=== PATIENT | female | born 1940 | race Caucasian/White ===

== ENCOUNTER 2020-11-23 19:52 | Outpatient (REF) | payer SELFPAY ==
[2020-11-23 21:12] LABS: Abs Immature Grans 0.08 10^3/uL (0.0-0.06); Absolute Basophil Count 0.02 10^3/uL (0.0-0.2); Absolute Eosinophil Count 0.26 10^3/uL (0.0-0.7); Absolute Lymphocyte Count 0.85 10^3/uL (1.2-3.4); Basophils % 0.2; Eosinophils % 2.3; HCT 31.4 % (36.0-46.0); HGB 10.1 g/dL (11.2-15.7); Immature Grans % 0.7; Lymphocytes % 7.5; MCH 30.9 pg (27.0-33.0); MCHC 32.2 % (32.0-36.0); MPV 8.7 fL (8.0-11.0); Monocytes % 7.8; Neutrophils % 81.5; Nucleated RBC 0 %; Platelet Count 453 10^3/uL (130-400); RBC 3.27 10^6/uL (3.93-5.22); RDW 13.7 % (11.7-14.6); RDW-SD 47.5 fL; WBC 11.35 10^3/uL (4.4-10.8)
[2020-11-23 21:15] LABS: Absolute Monocyte Count 0.89 10^3/uL (0.1-0.8); Absolute Neutrophil Count 9.25 10^3/uL (1.2-6.7)
[2020-11-24 06:38] LABS: ALT 33 U/L (14-59); AST 49 U/L (15-37); Albumin 2.7 g/dL (3.4-5.0); Alkaline Phosphatase 74 U/L (46-116); Anion Gap 7.1 mmol/L (3-11); BUN 12 mg/dL (7-18); Bilirubin, Total 1.3 mg/dL (0.2-1.0); CO2 30.9 mmol/L (21.0-32.0); CREATININE 0.8 mg/dL (0.55-1.02); Calcium 8.3 mg/dL (8.5-10.1); Chloride 99 mmol/L (98-107); Glucose 104 mg/dL (74-106); Sodium 137 mmol/L (136-145); Total Protein 5.7 g/dL (6.4-8.2)
[2020-11-24 07:13] LABS: Potassium 2.9 mmol/L (3.5-5.1)
== END 2020-11-23 19:53 | disposition home or self-care (01) ==
LOC: LBN 19:52
PROVIDERS: PCP Neuromusculoskeletal Medicine & OMM; Visit Provider Family Medicine
DX: J18.9 Pneumonia, unspecified organism (principal); I10 Essential (primary) hypertension
CPT/HCPCS: 80053; 85025

== ENCOUNTER 2020-11-28 13:52 | Outpatient (REF) | payer SELFPAY ==
[2020-11-28 16:50] LABS: Anion Gap 7.2 mmol/L (3-11); BUN 8 mg/dL (7-18); CO2 27.8 mmol/L (21.0-32.0); CREATININE 0.9 mg/dL (0.55-1.02); Calcium 8.5 mg/dL (8.5-10.1); Chloride 104 mmol/L (98-107); Glucose 94 mg/dL (74-106); Potassium 4.8 mmol/L (3.5-5.1); Sodium 139 mmol/L (136-145)
== END 2020-11-28 13:53 | disposition home or self-care (01) ==
LOC: LBN 13:52
PROVIDERS: PCP Neuromusculoskeletal Medicine & OMM; Visit Provider Nurse Practitioner Family
DX: E87.6 Hypokalemia (principal)
CPT/HCPCS: 80048

== ENCOUNTER 2020-12-30 10:57 | Emergency (ER) | payer MEDICARE, SELFPAY ==
[2020-12-30] VITALS (56 sets, daily range): BP systolic 83–155; BP diastolic 53–83; PULSE 89–139; RESP 0–45; TEMP 36.8–39.2; O2SAT 90–97
--- NOTE | 2020-12-30 11:00 | RT.EKG_ITS ---
APPROVED REPORT Exam: Resting ECG Reason for Exam: sob Patient Location: E HR:126 bpm ECG Measurements Heart Rate 126 AXIS AR 129 P 192 QRSd 147 QRS 141 QT 387 T -14 QTc 561 Conclusion Ectopic atrial tachycardia, unifocal...abnormal P axis, V-rate> 99 Consider dextrocardia...P, QRS axis rightward likely atrial flutter at rate 126, normal axis, no STEMI
[2020-12-30] MEDS: Normal Saline 1,000 ML 1000 ML IV (11:05)
[2020-12-30] MEDS: cefTRIAXone 2 GM/50 ML BAG 100 GM (11:30)
--- NOTE | 2020-12-30 11:30 | DI.RAD_ITS ---
Exam(s) XR PORTABLE CHEST AP EXAM: XR PORTABLE CHEST AP CLINICAL HISTORY: sob, hypoxia, hx of pneumonia TECHNIQUE: COMPARISON: No exams were available for comparison FINDINGS: The heart is at the upper limits of normal in size. Lungs are grossly clear with couple of small geoff ear areas of increased radiodensity in the lung bases which may represent small areas of scarring or atelectasis. IMPRESSION: No evidence of acute intrapulmonary process on this portable AP film.. Please note that, on today's CT examination, ground-glass and consolidative opacities were noted in t he lung bases. Acute pneumonitis should be considered. RADIATION DOSE DELIVERED: Total DLP
--- NOTE | 2020-12-30 11:30 | DI.CT_ITS ---
Exam(s) CT ABDOMEN PELVIS WO EXAM: CT ABDOMEN PELVIS WO INDICATION: gross hematuria. COMPARISON: CR XR PORTABLE CHEST AP from 12/30/2020 CR XR PORTABLE CHEST AP from 12/30/2020 TECHNIQUE: CT examination was performed without contrast administration. FINDINGS: The examination was significantly limited by motion artifact. Images obtained through the lung bases show some ground-glass and consolidative opacities, most marke d in the left lobe posteriorly. Please correlate regarding possibility of pneumonitis. Note is made of coronary artery calcification. Heart may be mildly enlarged. Visualized portions of the liver and spleen appear intact. Visualized portions of the pancreas are unremarkable. Note is made of cholelithiasis. No pericholecystic fluid collection. The bile ducts are CT normal. Abdominal aorta is of normal diameter. No significant abdominal wall hernia. No significant abdominal or pelvic adenopathy. Adrenals appear normal bilaterally. The kidneys are normal in size and shape. There is no evidence of a solid renal mass, hydronephrosis , or nephrolithiasis. There are couple of left renal cortical cysts, measuring 1-2 cm in diameter. No ureteral dilatation or calcification identified. The urinary bladder appears to be thick-walled s ome asymmetry of the appearance of the wall which is most thick anteriorly. Considering the history of hematuria, the findings could represent cystitis or bladder wall neoplasm. Additional evaluation with cystoscopy may be considered if clinically appropriate. The appendix is not specifically visualized but there is no evidence of appendicitis or diverticuliti s. IMPRESSION: No evidence of urinary tract calcification or obstruction. There is urinary bladder wall thickening, possibility of cystitis or neoplastic disease should be considered and correlation with cystoscopy i s suggested in light of the clinical history of gross hematuria. RADIATION DOSE DELIVERED: 1,368.41mGy.cm DLP 1,368.41mGy.cm Total DLP CTDIvol RADIATION OPTIMIZATION: All CT scans at this facility use at least one of these dose optimization te chniques: automated exposure control; mA and/or kV adjustment per patient size (includes targeted exa ms where dose is matched to clinical indication); or iterative reconstruction.
[2020-12-30] MEDS: Lidocaine 2% Jelly 6 ML SYR (11:40)
[2020-12-30 11:50] LABS: Source Nasal/Nares
[2020-12-30] MEDS: ACETAMINOPHEN 1,000 MG/100 ML BTL 200 MG (12:00)
[2020-12-30 12:10] LABS: Abs Immature Grans 0.08 10^3/uL (0.0-0.06); Absolute Basophil Count 0.02 10^3/uL (0.0-0.2); Absolute Eosinophil Count 0.07 10^3/uL (0.0-0.7); Absolute Lymphocyte Count 0.92 10^3/uL (1.2-3.4); Absolute Monocyte Count 0.04 10^3/uL (0.1-0.8); Absolute Neutrophil Count 6.55 10^3/uL (1.2-6.7); Basophils % 0.3; Eosinophils % 0.9; HCT 42.6 % (36.0-46.0); HGB 13.4 g/dL (11.2-15.7); MCH 29.4 pg (27.0-33.0); MCHC 31.5 % (32.0-36.0); MCV 93.4 fL (80-95); MPV 9.4 fL (8.0-11.0); Monocytes % 0.5; Neutrophils % 85.3; Nucleated RBC 0 %; Platelet Count 215 10^3/uL (130-400); RBC 4.56 10^6/uL (3.93-5.22); RDW 13.4 % (11.7-14.6); RDW-SD 46.2 fL; WBC 7.68 10^3/uL (4.4-10.8)
[2020-12-30 12:15] LABS: Lactate 2.7 mmol/L (0.6-1.4)
[2020-12-30] MEDS: Ondansetron 4 MG/2 ML VIAL (12:20)
[2020-12-30 12:32] LABS: Albumin 2.6 g/dL (3.4-5.0); BUN 7 mg/dL (7-18); Bilirubin, Total 0.5 mg/dL (0.2-1.0); CREATININE 1.1 mg/dL (0.55-1.02); Calcium 8.1 mg/dL (8.5-10.1); Estimated GFR 48.04 (mL/min/1.73m2); Glucose 129 mg/dL (74-106)
[2020-12-30 12:33] LABS: ALT 14 U/L (14-59); AST 21 U/L (15-37); Alkaline Phosphatase 94 U/L (46-116); Anion Gap 7.5 mmol/L (3-11); CO2 24.5 mmol/L (21.0-32.0); Chloride 106 mmol/L (98-107); Lipase 52 U/L (73-393); Potassium 3.5 mmol/L (3.5-5.1); Sodium 138 mmol/L (136-145)
[2020-12-30 12:34] LABS: Troponin I 2.91 ng/mL (<0.06)
[2020-12-30 12:50] LABS: COVID-19 PCR Negative (Negative)
[2020-12-30] MEDS: Lactated Ringers 1,000 ML 1000 ML IV (14:40)
--- NOTE | 2020-12-30 14:45 | RT.EKG_ITS ---
APPROVED REPORT Exam: Resting ECG Reason for Exam: elevated trop Patient Location: E HR:94 bpm ECG Measurements Heart Rate 94 AXIS AK 237 P 4 QRSd 99 QRS 27 QT 369 T 21 QTc 461 Conclusion Sinus rhythm...normal P axis, V-rate 60- 99 Prolonged AK interval...AK >215, V-rate 91-120
[2020-12-30 15:50] LABS: Bilirubin Negative (Negative); Blood Moderate (Negative); Clarity Cloudy (Clear); Glucose Negative (Negative); Ketones Negative (Negative); Leukocyte Esterase Trace (Negative); Nitrite Positive (Negative)
[2020-12-30 15:54] LABS: Troponin I 5.83 ng/mL (<0.06)
[2020-12-30 16:01] LABS: Epithelial Cells Rare HPF (Negative); RBC >50 HPF (0-2); WBC >50 HPF (0-5)
[2020-12-30 16:02] LABS: Bacteria Few HPF (Negative); C & S Indicated? Yes; Casts Negative LPF (Negative); Crystals Negative HPF (Negative); Mucus Negative (Negative)
[2020-12-30] MEDS: DOXYCYCLINE 100 MG in Normal Saline 100 ML IVPB (16:02)
--- NOTE | 2020-12-30 16:19 | ED.GENADUL_ITS ---
Discharge Plan Disposition Patient Disposition: OTHER Condition: Critical Discharge Details Clinical Impression: Acute UTI, Pneumonia, Sepsis Primary Care Provider: Krzysztof Saldivar ED Provider: Sofya Arroyo Home Meds and New Rx's Prescriptions: Continued acetaminophen 500 mg capsule 500 mg PO DIRECTED RF: 0 alum-mag hydroxide-simeth [Almacone-2] 400-400-40 mg/5 mL suspension 5 ml PO BID PRNRF: 0 amitriptyline 100 mg tablet 100 mg PO DAILY RF: 0 aspirin 81 mg tablet 81 mg PO DAILY RF: 0 diphenhydramine HCl [Banophen] 50 mg capsule 50 mg PO QHS RF: 0 buspirone 30 mg tablet 30 mg PO BID RF: 0 cetirizine 10 mg tablet 5 mg PO DAILY PRNRF: 0 mecobalamin (vitamin B12) 1,000 mcg tablet,chewable 1,000 mcg PO DAILY RF: 0 diltiazem HCl 120 mg capsule,extended release 24hr 120 mg PO DAILY RF: 0 fluoxetine 20 mg tablet 20 mg PO DAILY RF: 0 fluticasone propionate [Allergy Relief (fluticasone)] 50 mcg/actuation spray,suspension 2 spray intranasal DAILY RF: 0 glucosamine-chondroitin 500-400 mg capsule 1 cap PO TID RF: 0 isosorbide mononitrate 120 mg tablet extended release 24 hr 120 mg PO BID RF: 0 loratadine 10 mg tablet 10 mg PO DAILY RF: 0 meloxicam 15 mg tablet 15 mg PO DAILY RF: 0 triamcinolone acetonide [Children's Nasacort] 55 mcg aerosol,spray 2 spray intranasal DAILY RF: 0 nitroglycerin 0.4 mg tablet, sublingual 0.4 mg sublingual Q5M PRNRF: 0 omeprazole 20 mg capsule,delayed release(DR/EC) 20 mg PO BID RF: 0 simvastatin 40 mg tablet 40 mg PO DAILY RF: 0 trazodone 100 mg tablet 300 mg PO QHS RF: 0 hydroxyzine HCl 25 mg Tablet 5 mg PO PRNRF: 0 potassium chloride 20 mEq Tablet Extended Release 20 meq PO QID RF: 0 hydromorphone [Dilaudid] 2 mg Tablet 2 mg PO .6HOURS PRNRF: 0 Discharge Data Discharge Date/Time-TO BE ENTERED AT DEPARTURE: 12/30/20 17:00 Medical Decision Making Unfortunately patient is at risk for deterioration and will likely need intensive care bed, we do not currently have this available therefore daughter made aware regarding need for transport Case discussed with Dr. Fabian, accepting hospitalist at [facility] Patient is symptomatically improved hypotensive, will complete full sepsis bolus and reassess Troponin unfortunately has increased from 2-5, EKG shows normal sinus rhythm CT abdomen and pelvis did not show significant acute abnormality Chest x-ray with pneumonitis Patient was administered 2 g of ceftriaxone and 100 mg of doxycycline He received Tylenol 1 g His urine is concerning for infection H is reportedly on baseline oxygen, 1 to 2 L and tolerating this well His Lab is negative His lactate is elevated at 2.7 CRP of 1.7 Patient is not anticoagulated and does have a history of atrial fibrillation, however his repeat EKG shows normal sinus rhythm 80 the risk of anticoagulating this patient with his gross hematuria outweighs the benefit at this time I will leave further intervention to the discretion of the admitting provider At this time, EMS presents for transfer the patient, patient is symptomatically feeling improved, he is alert and at his cognitive baseline per his daughter who is in the room, daughter is Lucie and she prefers no invasive measures to be performed including cardiac catheterization, patient is to be DNR DNI status, this will be a change from his full CODE STATUS listed, we had a long discussion regarding this decision and patient's daughter Marta is competent to make decision and have DURABLE POWER OF SCISSORS GRINDER Patient is Covid negative At this time, patient's blood pressure maintained with a MAP of 67, he received a full sepsis bolus of 2800 cc of saline HPI General Mode of arrival: ambulatory . Date/Time Provider Initiated Documentation: 12/30/20 11:03 . Limitations to Documentation: altered mental status . Information obtained by: patient and EMS . HPI Narrative: This 80-year-old gentleman with history of hypertension, hyperlipidemia, dementia presents with report of rigors, fever, and gross hematuria. Patient was reported to start with the symptoms this morning. He has not been on antibiotics. Patient cannot tell me any complaints. I am told he is at his baseline patient. There have been no reported falls or injuries. Patient has not reportedly anticoagulated. Secondary to dementia unable to obtain additional history. Related Data Home Medications Medication Instructions Recorded Confirmed acetaminophen 500 mg capsule 500 mg PO DIRECTED cap 03/03/20 12/30/20 aluminum-mag hydroxide-simethicone 5 ml PO BID PRN ml 03/03/20 12/30/20 400 mg-400 mg-40 mg/5 mL oral susp amitriptyline 100 mg tablet 100 mg PO DAILY 03/03/20 12/30/20 aspirin 81 mg tablet 81 mg PO DAILY 03/03/20 12/30/20 buspirone 30 mg tablet 30 mg PO BID 03/03/20 cetirizine 10 mg tablet 5 mg PO DAILY PRN 03/03/20 12/30/20 diltiazem HCl 120 mg 120 mg PO DAILY 03/03/20 12/30/20 capsule,extended release 24 hr diphenhydramine HCl 50 mg capsule 50 mg PO QHS 03/03/20 12/30/20 fluoxetine 20 mg tablet 20 mg PO DAILY 03/03/20 12/30/20 fluticasone propionate 50 2 spray INTRANASAL DAILY 03/03/20 12/30/20 mcg/actuation nasal spray,suspension glucosamine-chondroitin 500 mg-400 1 cap PO TID 03/03/20 12/30/20 mg capsule isosorbide mononitrate 120 mg 120 mg PO BID tab 03/03/20 12/30/20 tablet,extended release 24 hr loratadine 10 mg tablet 10 mg PO DAILY 03/03/20 12/30/20 mecobalamin (vitamin B12) 1,000 1,000 mcg PO DAILY 03/03/20 12/30/20 mcg chewable tablet meloxicam 15 mg tablet 15 mg PO DAILY 03/03/20 12/30/20 nitroglycerin 0.4 mg sublingual 0.4 mg SUBLINGUAL Q5M PRN 03/03/20 12/30/20 tablet omeprazole 20 mg capsule,delayed 20 mg PO BID 03/03/20 12/30/20 release simvastatin 40 mg tablet 40 mg PO DAILY 03/03/20 12/30/20 trazodone 100 mg tablet 300 mg PO QHS tab 03/03/20 12/30/20 triamcinolone acetonide 55 mcg 2 spray INTRANASAL DAILY 03/03/20 12/30/20 nasal spray aerosol hydromorphone [Dilaudid] 2 mg PO .6HOURS PRN 12/30/20 12/30/20 hydroxyzine HCl 5 mg PO PRN 12/30/20 potassium chloride 20 meq PO QID 12/30/20 12/30/20 Allergies Allergy/AdvReac Type Severity Reaction Status Date / Time Iodinated Contrast Media Allergy Verified 12/30/20 12:03 General Stated Complaint: GenMedical MANE: 2 Review of Systems All systems reviewed & are unremarkable except as noted in HPI and below PFSH Medical History (Updated 12/30/20 @ 20:09 by DAO Granger) Anemia cobalamin deficiency Arthropathy Constipation Depressive disorder Hx of herpes zoster Hyperlipidemia Hypertension Insomnia Knee pain, right Macular degeneration Pain in left shoulder Senility Surgical History (Updated 03/02/20 @ 10:26 by Di Norris) H/O hernia repair Social History (Updated 03/02/20 @ 10:26 by Di Norris) Smoking/Tobacco Use Status: Never Smoking risk assessment performed?: Yes Exam Const General: cooperative and ill appearing HENMT Mouth: abnormal oral mucosae Eyes Pupils: PERRL Neck Other: no meningismus Resp Effort & Inspection: normal respiratory effort Cardio Rate: tachycardic Heart Sounds: murmur GI Inspection: normal to inspection Auscultation: normal bowel sounds Other: No abdominal tenderness Skin General skin exam: no rashes or lesions noted Other: pallor Neuro General: patient alert Cranial Nerves: CN's II-XI intact bilaterally Speech: speech normal Extrem Other: Distal pulses intact 1+ edema bilateral lower extremities, no petechiae or purpura Course Vital Signs Vital signs: Vital Signs Respiratory Rate 29 H 12/30/20 11:03 Temperature 39.2 C H 12/30/20 11:56 Temperature Source Skin 12/30/20 11:56 Pulse 117 H 12/30/20 12:30 Pulse 105 H 12/30/20 14:11 Respiratory Rate 24 12/30/20 14:11 Respiratory Effort 12/30/20 13:29 Respiratory Depth Normal 12/30/20 13:29 Respiratory Pattern Normal 12/30/20 13:29 Blood Pressure 103/67 12/30/20 12:30 Blood Pressure Mean 75 12/30/20 12:30 Blood Pressure Position Supine 12/30/20 11:56 Pulse Oximetry 94 12/30/20 14:11 Oxygen Delivery Method OxyMask 12/30/20 12:26 Oxygen Flow Rate 3.5 12/30/20 12:26 Pain Level 0 12/30/20 11:56 Lab/Test Results Lab/Test Results: 12/30/20 15:30 Urine - Clean Catch Urine Culture - Pending 12/30/20 12:15 Urine - Cath Straight Urine Culture - Pending 12/30/20 11:55 Blood Blood Culture - Pending 12/30/20 11:15 Blood Blood Culture - Pending Laboratory Tests Range/Units 12/30/20 12/30/20 12/30/20 11:15 11:15 11:15 WBC (4.4-10.8) 10^3/uL 7.68 RBC (3.93-5.22) 10^6/uL 4.56 Hgb (11.2-15.7) g/dL 13.4 Hct (36.0-46.0) % 42.6 MCV (80-95) fL 93.4 MCH (27.0-33.0) pg 29.4 MCHC (32.0-36.0) % 31.5 L RDW (11.7-14.6) % 13.4 Plt Count (130-400) 10^3/uL 215 MPV (8.0-11.0) fL 9.4 Immature Gran % 1.0 Neutrophils % 85.3 Lymphocytes % 12.0 Monocytes % 0.5 Eosinophils % 0.9 Basophils % 0.3 Nucleated RBC % % 0 Absolute Neutrophils (1.2-6.7) 10^3/uL 6.55 Absolute Lymphocytes (1.2-3.4) 10^3/uL 0.92 L Absolute Monocytes (0.1-0.8) 10^3/uL 0.04 L Absolute Eosinophils (0.0-0.7) 10^3/uL 0.07 Absolute Basophils (0.0-0.2) 10^3/uL 0.02 VBG Lactate (0.6-1.4) mmol/L Sodium (136-145) mmol/L 138 Potassium (3.5-5.1) mmol/L 3.5 Chloride (98-107) mmol/L 106 Carbon Dioxide (21.0-32.0) mmol/L 24.5 Anion Gap (3-11) mmol/L 7.5 BUN (7-18) mg/dL 7 Creatinine (0.55-1.02) mg/dL 1.1 H Estimated GFR/1.73 m2 (mL/min/1.73m2) 48.04 Glucose (74-106) mg/dL 129 H Calcium (8.5-10.1) mg/dL 8.1 L Total Bilirubin (0.2-1.0) mg/dL 0.5 AST (15-37) U/L 21 ALT (14-59) U/L 14 Alkaline Phosphatase (46-116) U/L 94 Troponin I (<0.06) ng/mL 2.91 H* C-Reactive Protein (0.0-0.3) mg/dL 1.70 H Cancelled Total Protein (6.4-8.2) g/dL 6.0 L Albumin (3.4-5.0) g/dL 2.6 L Lipase (73-393) U/L 52 Urine Color Urine Clarity Urine pH Ur Specific [place] Urine Protein Urine Ketones Urine Blood Urine Nitrite Urine Bilirubin Urine Urobilinogen Ur Leukocyte Esterase Urine RBC (0-2) HPF Urine WBC (0-5) HPF Ur Epithelial Cells (Negative) HPF Urine Crystals (Negative) HPF Urine Bacteria (Negative) HPF Urine Casts (Negative) LPF Urine Mucus (Negative) Urine Other (Negative) Ur Culture Indicated? Urine Glucose COVID-19 Source SARS-CoV-2 (PCR) (Negative) Range/Units 12/30/20 12/30/20 12/30/20 11:15 11:45 11:50 WBC (4.4-10.8) 10^3/uL RBC (3.93-5.22) 10^6/uL Hgb (11.2-15.7) g/dL Hct (36.0-46.0) % MCV (80-95) fL MCH (27.0-33.0) pg MCHC (32.0-36.0) % RDW (11.7-14.6) % Plt Count (130-400) 10^3/uL MPV (8.0-11.0) fL Immature Gran % Neutrophils % Lymphocytes % Monocytes % Eosinophils % Basophils % Nucleated RBC % % Absolute Neutrophils (1.2-6.7) 10^3/uL Absolute Lymphocytes (1.2-3.4) 10^3/uL Absolute Monocytes (0.1-0.8) 10^3/uL Absolute Eosinophils (0.0-0.7) 10^3/uL Absolute Basophils (0.0-0.2) 10^3/uL VBG Lactate (0.6-1.4) mmol/L Sodium (136-145) mmol/L Potassium (3.5-5.1) mmol/L Chloride (98-107) mmol/L Carbon Dioxide (21.0-32.0) mmol/L Anion Gap (3-11) mmol/L BUN (7-18) mg/dL Creatinine (0.55-1.02) mg/dL Estimated GFR/1.73 m2 (mL/min/1.73m2) Glucose (74-106) mg/dL Calcium (8.5-10.1) mg/dL Total Bilirubin (0.2-1.0) mg/dL AST (15-37) U/L ALT (14-59) U/L Alkaline Phosphatase (46-116) U/L Troponin I (<0.06) ng/mL C-Reactive Protein (0.0-0.3) mg/dL Total Protein (6.4-8.2) g/dL Albumin (3.4-5.0) g/dL Lipase (73-393) U/L Cancelled Urine Color Urine Clarity Urine pH Ur Specific [place] Urine Protein Urine Ketones Urine Blood Urine Nitrite Urine Bilirubin Urine Urobilinogen Ur Leukocyte Esterase Urine RBC (0-2) HPF Urine WBC (0-5) HPF Ur Epithelial Cells (Negative) HPF Urine Crystals (Negative) HPF Urine Bacteria (Negative) HPF Urine Casts (Negative) LPF Urine Mucus (Negative) Urine Other (Negative) Ur Culture Indicated? Urine Glucose COVID-19 Source Nasal/Nares Cancelled SARS-CoV-2 (PCR) (Negative) Negative Cancelled Range/Units 12/30/20 12/30/20 12/30/20 12:06 12:15 15:14 WBC (4.4-10.8) 10^3/uL RBC (3.93-5.22) 10^6/uL Hgb (11.2-15.7) g/dL Hct (36.0-46.0) % MCV (80-95) fL MCH (27.0-33.0) pg MCHC (32.0-36.0) % RDW (11.7-14.6) % Plt Count (130-400) 10^3/uL MPV (8.0-11.0) fL Immature Gran % Neutrophils % Lymphocytes % Monocytes % Eosinophils % Basophils % Nucleated RBC % % Absolute Neutrophils (1.2-6.7) 10^3/uL Absolute Lymphocytes (1.2-3.4) 10^3/uL Absolute Monocytes (0.1-0.8) 10^3/uL Absolute Eosinophils (0.0-0.7) 10^3/uL Absolute Basophils (0.0-0.2) 10^3/uL VBG Lactate (0.6-1.4) mmol/L 2.7 H* Sodium (136-145) mmol/L Potassium (3.5-5.1) mmol/L Chloride (98-107) mmol/L Carbon Dioxide (21.0-32.0) mmol/L Anion Gap (3-11) mmol/L BUN (7-18) mg/dL Creatinine (0.55-1.02) mg/dL Estimated GFR/1.73 m2 (mL/min/1.73m2) Glucose (74-106) mg/dL Calcium (8.5-10.1) mg/dL Total Bilirubin (0.2-1.0) mg/dL AST (15-37) U/L ALT (14-59) U/L Alkaline Phosphatase (46-116) U/L Troponin I (<0.06) ng/mL 5.83 H* C-Reactive Protein (0.0-0.3) mg/dL Total Protein (6.4-8.2) g/dL Albumin (3.4-5.0) g/dL Lipase (73-393) U/L Urine Color Cancelled Urine Clarity Cancelled Urine pH Cancelled Ur Specific [place] Cancelled Urine Protein Cancelled Urine Ketones Cancelled Urine Blood Cancelled Urine Nitrite Cancelled Urine Bilirubin Cancelled Urine Urobilinogen Cancelled Ur Leukocyte Esterase Cancelled Urine RBC (0-2) HPF Urine WBC (0-5) HPF Ur Epithelial Cells (Negative) HPF Urine Crystals (Negative) HPF Urine Bacteria (Negative) HPF Urine Casts (Negative) LPF Urine Mucus (Negative) Urine Other (Negative) Ur Culture Indicated? Urine Glucose Cancelled COVID-19 Source SARS-CoV-2 (PCR) (Negative) Range/Units 12/30/20 15:30 WBC (4.4-10.8) 10^3/uL RBC (3.93-5.22) 10^6/uL Hgb (11.2-15.7) g/dL Hct (36.0-46.0) % MCV (80-95) fL MCH (27.0-33.0) pg MCHC (32.0-36.0) % RDW (11.7-14.6) % Plt Count (130-400) 10^3/uL MPV (8.0-11.0) fL Immature Gran % Neutrophils % Lymphocytes % Monocytes % Eosinophils % Basophils % Nucleated RBC % % Absolute Neutrophils (1.2-6.7) 10^3/uL Absolute Lymphocytes (1.2-3.4) 10^3/uL Absolute Monocytes (0.1-0.8) 10^3/uL Absolute Eosinophils (0.0-0.7) 10^3/uL Absolute Basophils (0.0-0.2) 10^3/uL VBG Lactate (0.6-1.4) mmol/L Sodium (136-145) mmol/L Potassium (3.5-5.1) mmol/L Chloride (98-107) mmol/L Carbon Dioxide (21.0-32.0) mmol/L Anion Gap (3-11) mmol/L BUN (7-18) mg/dL Creatinine (0.55-1.02) mg/dL Estimated GFR/1.73 m2 (mL/min/1.73m2) Glucose (74-106) mg/dL Calcium (8.5-10.1) mg/dL Total Bilirubin (0.2-1.0) mg/dL AST (15-37) U/L ALT (14-59) U/L Alkaline Phosphatase (46-116) U/L Troponin I (<0.06) ng/mL C-Reactive Protein (0.0-0.3) mg/dL Total Protein (6.4-8.2) g/dL Albumin (3.4-5.0) g/dL Lipase (73-393) U/L Urine Color [place] Urine Clarity Cloudy Urine pH 6.0 Ur Specific [place] 1.020 Urine Protein Negative Urine Ketones Negative Urine Blood Moderate H Urine Nitrite Positive H Urine Bilirubin Negative Urine Urobilinogen 02 Ur Leukocyte Esterase Trace Urine RBC (0-2) HPF >50 H Urine WBC (0-5) HPF >50 H Ur Epithelial Cells (Negative) HPF Rare Urine Crystals (Negative) HPF Negative Urine Bacteria (Negative) HPF Few Urine Casts (Negative) LPF Negative Urine Mucus (Negative) Negative Urine Other (Negative) Ur Culture Indicated? Yes Urine Glucose Negative COVID-19 Source SARS-CoV-2 (PCR) (Negative) Critical Care Time Critical Care Time Critical Care Time: Yes Total Critical Care Time: 60 Attestation: IV antibiotics, IV fluids, IV Tylenol, diagnostic imaging, hospitalist consultation, diagnostic labs, telemetry monitoring
[2020-12-30] MEDS: Lactated Ringers 1,000 ML 800 ML IV (16:39)
== END 2020-12-30 17:00 | disposition other institution (70) ==
PROVIDERS: Emergency Provider Physician Assistant; PCP Family Medicine
DX: A41.51 Sepsis due to Escherichia coli [E. coli] (principal); N39.0 Urinary tract infection, site not specified; R65.20 Severe sepsis without septic shock; J18.9 Pneumonia, unspecified organism
CPT/HCPCS: 36415; 80053; 83690; 87040; 87077; 87635; 93005; 96360; 96361; 96365; 96375; 99291; 71045; 74176; 81003; 81015; 83605; 84484; 85025; 86140; 87086; 87186; 93010; J0131; J2405